=== PATIENT | female | born 1960 | race Caucasian/White ===

== ENCOUNTER 2016-09-12 15:58 | Emergency (ER) | payer OTHER ==
[~2016-09-12] VITALS: Ht 166.4 cm; Wt 98.6 kg
[2016-09-12 16:04] VITALS: BP 143/84; PULSE 89; RESP 15; O2SAT 98
[2016-09-12] MEDS ORDERED: PSEU240T6 PO (16:12)
[2016-09-12] MEDS ORDERED: FLUT9.9S NS (16:12)
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
[2016-09-12] MEDS ORDERED: oxyCODONE-Acetamin 5-325 mg Tablet PO ONE (16:40)
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
[2016-09-12] MEDS ORDERED: CYCL10TA9 PO (18:45)
[2016-09-12 18:56] VITALS: BP 136/84; PULSE 78; O2SAT 98
== END 2016-09-12 18:57 | disposition home or self-care (01) ==
LOC: SED 15:58
DX: S16.1XXA Strain of muscle, fascia and tendon at neck level, initial encounter (principal); V44.5XXA Car driver injured in collision with heavy transport vehicle or bus in traffic accident, initial encounter; Y93.89 Activity, other specified; Y92.410 Unspecified street and highway as the place of occurrence of the external cause; Y99.8 Other external cause status; Z88.5 Allergy status to narcotic agent; Z88.8 Allergy status to other drugs, medicaments and biological substances